=== PATIENT | male | born 1980 | race African-American/Black ===

== ENCOUNTER 2024-07-27 01:05 | Emergency (ER) | payer SELFPAY ==
[~2024-07-27] VITALS: Ht 172.7 cm; Wt 71.0 kg
[2024-07-27 01:16] VITALS: O2SAT 100
[2024-07-27] MEDS ORDERED: AMLO5TAB88 MT (01:49)
[2024-07-27] MEDS: LIDOCAINE HCL/PF 1% 10 MG/ML 5ML VIAL INFIL ONE (02:44)
[2024-07-27] MEDS: AMLODIPINE 5MG TABLET PO ONE (02:44)
[2024-07-27] MEDS: BACITRACIN ZINC OINT UDPKT TOP ONE (02:45)
[2024-07-27] MEDS: TETANUS, DIPHTHERIA, PERTUSSIS VAC/PF 0.5ML (>10YR OLD) IM ONE (02:46)
[2024-07-27 02:50] VITALS: BP 160/90; PULSE 74; RESP 20; TEMP 36.78072; O2SAT 100
== END 2024-07-27 02:49 | disposition home or self-care (01) ==
LOC: ER 01:18
DX: S01.111A Laceration without foreign body of right eyelid and periocular area, initial encounter (principal); I10 Essential (primary) hypertension; Z79.899 Other long term (current) drug therapy; W22.8XXA Striking against or struck by other objects, initial encounter; Y93.89 Activity, other specified; Y92.89 Other specified places as the place of occurrence of the external cause; Y99.8 Other external cause status
CPT/HCPCS: 99283; 90715; 12011; 90471; J3490